=== PATIENT | male | born 1975 | race Caucasian/White ===

== ENCOUNTER 2017-12-17 03:21 | Emergency (ER) | payer OTHER, MEDICAID ==
[~2017-12-17] VITALS: Ht 188 cm; Wt 131.5 kg
[~2017-12-17 03:21] MED LIST: AMLODIPINE BESY10 M1 PO; APAP/HYDROCODON1 T13 PO; APIDRA100 U/M1 IJ; COL100 PO; COLACE100 MG PO; COR3 PO; DULCOLAX5 MG PO; GLIPIZIDE; GLIPIZIDE2.5 M1 PO; GLIPIZIDE5 MG PO; LAC PO; LEVEMIR100 U/M1 SC; LEVOFLOXACIN750 M1 PO; LOPRESSOR50 MG PO; METOCLOPRAMIDE10 MG PO; METOPROLOL; METP PO; NOR10T PO; OMEPRAZOLE DR20 M1 PO; SIMVASTATIN; SIMVASTATIN40 M1 PO; ZESTRIL20 MG PO; ZOC20 PO; ZOF4 PO
[2017-12-17 03:28] VITALS: Ht 188 cm; Wt 131.5 kg
[2017-12-17 04:26] VITALS: BP 150/94
== END 2017-12-17 04:26 | disposition home or self-care (01) ==
LOC: ED 03:21
DX: S63.610A Unspecified sprain of right index finger, initial encounter (principal); I10 Essential (primary) hypertension; E11.9 Type 2 diabetes mellitus without complications; E78.00 Pure hypercholesterolemia, unspecified; X50.9XXA Other and unspecified overexertion or strenuous movements or postures, initial encounter; Y93.89 Activity, other specified; Y92.89 Other specified places as the place of occurrence of the external cause; Y99.8 Other external cause status
CPT/HCPCS: A4570; J1885; Q0092

== ENCOUNTER 2018-06-08 14:51 | Emergency (ER) | payer OTHER ==
[~2018-06-08] VITALS: Ht 188 cm; Wt 120.2 kg
[2018-06-08 14:54] VITALS: Ht 188 cm; Wt 120.2 kg
[2018-06-08 15:20] LABS: BASOPHIL % 0.6 % (0-2); PLATELET COUNT 244 x10^3mcL (130-400); RED CELL DISTRIBUTION WIDTH 13.3 % (11.5-14.5)
[2018-06-08 16:19] LABS: ALKALINE PHOSPHATASE 148 U/L (46-116); ALT/SGPT 24 U/L (16-63); AST/SGOT 18 U/L (15-37); BILIRUBIN TOTAL 0.59 mg/dL (0.20-1.00); CALCIUM 9.2 mg/dL (8.5-10.1); CARBON DIOXIDE 27.1 mmol/L (21-32); CHLORIDE SERUM 97 mmol/L (98-107); CREATININE SERUM 1.3 mg/dL (0.7-1.3); GFR1 > 60 mL/min; LIPASE 157 IU/L (73-393); POTASSIUM SERUM 4.2 mmol/L (3.5-5.1); SODIUM SERUM 130 mmol/L (136-145); TOTAL PROTEIN, SERUM 8.1 g/dL (6.4-8.2)
[2018-06-08 16:23] LABS: GLUCOSE SERUM 518 mg/dL (74-106)
[2018-06-08 18:01] VITALS: BP 148/82
== END 2018-06-08 18:01 | disposition home or self-care (01) ==
LOC: ED 14:51
PROVIDERS: Emergency Medicine
DX: S61.210A Laceration without foreign body of right index finger without damage to nail, initial encounter (principal); R10.11 Right upper quadrant pain; E11.65 Type 2 diabetes mellitus with hyperglycemia; E86.0 Dehydration; I10 Essential (primary) hypertension; E78.00 Pure hypercholesterolemia, unspecified; R11.2 Nausea with vomiting, unspecified; R19.7 Diarrhea, unspecified; R42 Dizziness and giddiness; R35.8 Other polyuria; R63.1 Polydipsia; X58.XXXA Exposure to other specified factors, initial encounter; Y93.89 Activity, other specified; Y92.89 Other specified places as the place of occurrence of the external cause; Y99.8 Other external cause status
CPT/HCPCS: J1815; J1885; J2001; J2550; J7030; Q0092

== ENCOUNTER 2018-06-17 08:18 | Emergency (ER) | payer OTHER ==
[~2018-06-17] VITALS: Ht 188 cm; Wt 119.7 kg
[2018-06-17 08:24] VITALS: Ht 188 cm; Wt 119.7 kg
[2018-06-17 09:31] VITALS: BP 165/77
== END 2018-06-17 09:31 | disposition home or self-care (01) ==
LOC: ED 08:18
DX: S61.210D Laceration without foreign body of right index finger without damage to nail, subsequent encounter (principal); X58.XXXD Exposure to other specified factors, subsequent encounter; I10 Essential (primary) hypertension; E11.9 Type 2 diabetes mellitus without complications; E78.00 Pure hypercholesterolemia, unspecified

== ENCOUNTER 2018-08-05 12:29 | Emergency (ER) | payer OTHER ==
[~2018-08-05] VITALS: Ht 182.9 cm; Wt 116.6 kg
[2018-08-05 14:04] LABS: ALBUMIN 3.6 g/dL (3.4-5.0); ALKALINE PHOSPHATASE 137 U/L (46-116); ALT/SGPT 30 U/L (16-63); AST/SGOT 11 U/L (15-37); BILIRUBIN TOTAL 0.6 mg/dL (0.20-1.00); CALCIUM 9.1 mg/dL (8.5-10.1); CARBON DIOXIDE 21.8 mmol/L (21-32); CHLORIDE SERUM 100 mmol/L (98-107); CREATININE SERUM 1.1 mg/dL (0.7-1.3); GFR1 > 60 mL/min; LIPASE 151 IU/L (73-393); POTASSIUM SERUM 4.4 mmol/L (3.5-5.1); SODIUM SERUM 133 mmol/L (136-145); TOTAL PROTEIN, SERUM 7.4 g/dL (6.4-8.2)
[2018-08-05 14:07] LABS: BASOPHIL % 0.2 % (0-2); PLATELET COUNT 208 x10^3mcL (130-400); RED CELL DISTRIBUTION WIDTH 14.1 % (11.5-14.5)
[2018-08-05 14:20] LABS: GLUCOSE SERUM 545 mg/dL (74-106)
[2018-08-05 14:33] LABS: microscopic required? YES; urine erythrocyte TRACE (NEGATIVE)
[2018-08-05 17:15] VITALS: BP 161/88
== END 2018-08-05 17:15 | disposition home or self-care (01) ==
LOC: ED 12:29
PROVIDERS: Emergency Medicine
DX: R10.10 Upper abdominal pain, unspecified (principal); E11.65 Type 2 diabetes mellitus with hyperglycemia; I10 Essential (primary) hypertension; E78.00 Pure hypercholesterolemia, unspecified; R42 Dizziness and giddiness
CPT/HCPCS: 82962; 83880; J1815; J2270; J2405; J7030; Q0092; Q9967

== ENCOUNTER 2018-10-17 13:49 | Emergency (ER) | payer OTHER ==
[~2018-10-17] VITALS: Ht 188 cm; Wt 121.6 kg
[2018-10-17 14:24] VITALS: BP 188/107; Ht 188 cm; Wt 121.6 kg
== END 2018-10-17 16:49 | disposition home or self-care (01) ==
LOC: ED 13:49
DX: S93.401A Sprain of unspecified ligament of right ankle, initial encounter (principal); I10 Essential (primary) hypertension; E11.9 Type 2 diabetes mellitus without complications; Z98.890 Other specified postprocedural states; W10.8XXA Fall (on) (from) other stairs and steps, initial encounter; Y93.89 Activity, other specified; Y92.89 Other specified places as the place of occurrence of the external cause; Y99.8 Other external cause status

== ENCOUNTER 2019-02-16 10:28 | Inpatient (IN) | payer OTHER ==
[~2019-02-16] VITALS: Ht 188 cm; Wt 127.9 kg
[~2019-02-16 10:28] MED LIST changes: +ACID REDUCER20 MG PO; -AMLODIPINE BESY10 M1 PO; +GLIPIZIDE5 M2 PO; -GLIPIZIDE5 MG PO; +NOR10 PO; -OMEPRAZOLE DR20 M1 PO
[2019-02-16 10:31] VITALS: Ht 188 cm; Wt 127.9 kg
[2019-02-16 12:01] LABS: BASOPHIL % 0.5 % (0-2); PLATELET COUNT 252 x10^3mcL (130-400); RED CELL DISTRIBUTION WIDTH 13.9 % (11.5-14.5)
[2019-02-16 12:07] LABS: CALCIUM 8.7 mg/dL (8.5-10.1); CARBON DIOXIDE 29.4 mmol/L (21-32); CHLORIDE SERUM 103 mmol/L (98-107); CREATININE SERUM 0.9 mg/dL (0.7-1.3); GFR1 > 60 mL/min; GLUCOSE SERUM 344 mg/dL (74-106); SODIUM SERUM 138 mmol/L (136-145)
[2019-02-16 12:12] LABS: UA SPECIFIC GRAVITY >=1.030 (1.005-1.035); microscopic required? YES; urine erythrocyte NEGATIVE (NEGATIVE)
[2019-02-16 12:17] LABS: ALBUMIN 3.7 g/dL (3.4-5.0); ALKALINE PHOSPHATASE 113 U/L (46-116); ALT/SGPT 34 U/L (16-63); AST/SGOT 18 U/L (15-37); BILIRUBIN TOTAL 0.45 mg/dL (0.20-1.00); C REACTIVE PROTEIN 0.3 mg/dL (<=0.9); TOTAL PROTEIN, SERUM 7.3 g/dL (6.4-8.2)
[2019-02-16 12:20] LABS: T3 TOTAL 1.31 ng/mL
[2019-02-16 12:23] LABS: FREE T4 1.08 ng/dL (0.76-1.46); FREE THYROXINE INDEX 3.3 ug/dL (1.4-4.5); T4(THYROXINE) 9.3 ug/dL (4.7-13.3)
[2019-02-16 12:32] LABS: CK-MB 0.6 ng/mL (0-3.6)
[2019-02-16 13:14] LABS: ERYTHROCYTE SED RATE 20 mm/hr (0-15)
[2019-02-16] MEDS ORDERED: METFORMIN500 M1 (15:47)
[2019-02-16 16:39] VITALS: BP 184/90
[2019-02-16 17:03] LABS: MAGNESIUM 1.6 mg/dL (1.8-2.4); PHOSPHOROUS 3.5 mg/dL (2.5-4.9)
[2019-02-16 17:07] LABS: CHOLESTEROL/HDL RATIO 6.1
[2019-02-16 17:23] LABS: AMPHETAMINE QUAL UR NONE DETECTED (See below)
[2019-02-16 18:10] VITALS: BP 154/85
[2019-02-16 20:36] VITALS: BP 155/85
[2019-02-17 05:07] VITALS: BP 144/85
[2019-02-17 06:54] LABS: CALCIUM 8.2 mg/dL (8.5-10.1); CARBON DIOXIDE 27.6 mmol/L (21-32); CHLORIDE SERUM 106 mmol/L (98-107); CREATININE SERUM 0.7 mg/dL (0.7-1.3); GFR1 > 60 mL/min; GLUCOSE SERUM 190 mg/dL (74-106); POTASSIUM SERUM 4.1 mmol/L (3.5-5.1); SODIUM SERUM 142 mmol/L (136-145)
[2019-02-17 06:56] LABS: BASOPHIL % 0.6 % (0-2); PLATELET COUNT 216 x10^3mcL (130-400); RED CELL DISTRIBUTION WIDTH 14.3 % (11.5-14.5)
[2019-02-17 09:00] VITALS: BP 149/92
[2019-02-17 17:41] VITALS: BP 147/81
[2019-02-17 20:10] VITALS: BP 125/86
[2019-02-18 05:43] VITALS: BP 129/76
[2019-02-18 06:45] LABS: CALCIUM 8.5 mg/dL (8.5-10.1); CARBON DIOXIDE 26.7 mmol/L (21-32); CHLORIDE SERUM 106 mmol/L (98-107); CREATININE SERUM 0.7 mg/dL (0.7-1.3); GFR1 > 60 mL/min; GLUCOSE SERUM 185 mg/dL (74-106); POTASSIUM SERUM 4.2 mmol/L (3.5-5.1); SODIUM SERUM 140 mmol/L (136-145)
[2019-02-18 06:46] LABS: BASOPHIL % 0.5 % (0-2); PLATELET COUNT 235 x10^3mcL (130-400); RED CELL DISTRIBUTION WIDTH 13.7 % (11.5-14.5)
[2019-02-18 08:23] VITALS: BP 155/87
[2019-02-18 16:40] VITALS: BP 158/70
[2019-02-18 16:50] VITALS: BP 158/70
== END 2019-02-18 17:27 | disposition home or self-care (01) | DRG 73 ==
LOC: ED 10:28 → MU 15:22
PROVIDERS: Internal Medicine Gastroenterology; Specialist; ADMIT Family Medicine
PROC: 0DB78ZX Excision of Stomach, Pylorus, Via Natural or Artificial Opening Endoscopic, Diagnostic (ICD-10-PCS; principal; 2019-02-17 13:30)
DX: E11.43 Type 2 diabetes mellitus with diabetic autonomic (poly)neuropathy (principal); N17.0 Acute kidney failure with tubular necrosis; E11.65 Type 2 diabetes mellitus with hyperglycemia; K31.84 Gastroparesis; I10 Essential (primary) hypertension; R80.9 Proteinuria, unspecified; E78.5 Hyperlipidemia, unspecified; Z79.4 Long term (current) use of insulin; Z68.36 Body mass index [BMI] 36.0-36.9, adult; Z87.891 Personal history of nicotine dependence; Z79.84 Long term (current) use of oral hypoglycemic drugs
CPT/HCPCS: 43235; 45378; 82962; 83880; 84439; C9113; J0171; J1200; J1610; J1885; J2250; J2270; J2310; J2405; J2765; J3010; J3490; J7030; Q0092; Q9966; Q9967